=== PATIENT | male | born 1980 ===

== ENCOUNTER 2022-01-24 14:04 | Emergency (ER) | payer OTHER ==
[2022-01-24 14:45] LABS: BASOPHIL 0.8 % (0-2); EOSINOPHIL 0.8 % (0-5); HCT 36.6 % (42.0-52.0); HGB 12.3 g/dl (13.2-18.0); LYMPHOCYTE 13.4 % (15-48); MCH 29.6 pg (25.0-31.0); MCHC 33.6 g/dL (32.0-36.0); MONOCYTE 5.1 % (0-12); MPV 11.8 fL (6.0-9.5); NEUTROPHIL 79.2 % (41-80); NRBC 0; PLT 415 K/uL (150-400); RBC 4.16 M/uL (4.70-6.00); RDW 11.8 % (11.5-14.0); WBC 7.3 K/uL (4.0-10.5)
[2022-01-24 14:47] LABS: BILIRUBIN NEGATIVE (NEGATIVE); BLOOD NEGATIVE Ery/uL (NEGATIVE); CLARITY CLEAR (CLEAR); COLOR YELLOW (YELLOW); GLUCOSE (U) 3+ mg/dL (NORMAL); LEUKOCYTES NEGATIVE Leu/uL (NEGATIVE); NITRITE NEGATIVE (NEGATIVE); PROTEIN NEGATIVE (NEGATIVE); SPECIFIC GRAVITY <=1.005 (1.001-1.030); UROBILINOGEN 0.2 mg/dL (0.2-1.0)
[2022-01-24 14:49] LABS: ALBUMIN 2.8 g/dL (3.4-5.0); BILIRUBIN - TOTAL 0.2 mg/dL (0.2-1.0); BUN/CREAT RATIO (CALC) 14.3 RATIO; CREATININE 0.7 mg/dL (0.67-1.17); GLOBULIN (CALCULATION) 4.6 g/dL; POTASSIUM 3.8 mmol/L (3.5-5.1); TOTAL PROTEIN 7.4 g/dL (6.4-8.2)
== END 2022-01-24 17:57 | disposition home or self-care (01) ==
LOC: FER 14:04 → EDBD 14:04 → FER 17:57
PROVIDERS: Nurse Practitioner Family
DX: E11.65 Type 2 diabetes mellitus with hyperglycemia (principal); Z79.4 Long term (current) use of insulin
CPT/HCPCS: 36415; 36600; 80053; 81003; 82009; 82803; 85025; J7030

== ENCOUNTER 2022-02-08 01:12 | Emergency (ER) | payer OTHER ==
[~2022-02-08 01:12] MED LIST: LANTUS **100 UNITS/ SC; NOVOLOG VI100 UNIT/1 SC; PERCOCET 5-3251 EACH PO
[2022-02-08 01:43] LABS: BASOPHIL 0.8 % (0-2); EOSINOPHIL 1.9 % (0-5); HGB 12.5 g/dl (13.2-18.0); LYMPHOCYTE 14.2 % (15-48); MCH 29.1 pg (25.0-31.0); MCHC 32.9 g/dL (32.0-36.0); MCV 88.6 fL (78.0-100.0); MONOCYTE 6.1 % (0-12); MPV 10.8 fL (6.0-9.5); NEUTROPHIL 76.7 % (41-80); NRBC 0; PLT 224 K/uL (150-400); RBC 4.29 M/uL (4.70-6.00); RDW 12.5 % (11.5-14.0); WBC 9.2 K/uL (4.0-10.5)
[2022-02-08 02:13] LABS: ALBUMIN 3.3 g/dL (3.4-5.0); ALKALINE PHOSHATASE 99 U/L (46-116); ALT 28 U/L (16-63); AMYLASE 66 U/L (25-115); AST 34 U/L (15-37); BILIRUBIN - TOTAL 0.2 mg/dL (0.2-1.0); BUN 18 mg/dL (7-18); BUN/CREAT RATIO (CALC) 22.8 RATIO; CHLORIDE 107 mmol/L (98-107); CO2 (BICARBONATE) 27 mmol/L (21-32); CREATININE 0.79 mg/dL (0.67-1.17); GLOBULIN (CALCULATION) 4.4 g/dL; GLUCOSE 234 mg/dL (74-106); LIPASE 120 U/L (73-393); POTASSIUM 4.5 mmol/L (3.5-5.1); TOTAL PROTEIN 7.7 g/dL (6.4-8.2)
== END 2022-02-08 08:05 | disposition other institution (70) ==
LOC: FER 01:12
PROVIDERS: Emergency Medicine
DX: K85.91 Acute pancreatitis with uninfected necrosis, unspecified (principal); K86.1 Other chronic pancreatitis; E11.9 Type 2 diabetes mellitus without complications; Z79.4 Long term (current) use of insulin; Z28.310 Unvaccinated for COVID-19
CPT/HCPCS: 36415; 80053; 82150; 83605; 83690; 85025; G0480; J1170; J2270; J2405; J7030; Q9967